=== PATIENT | male | born 1990 | race Caucasian/White ===

== ENCOUNTER 2017-01-29 21:37 | Emergency (ER) | payer MEDICAID, OTHER ==
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
[2017-01-29 23:00] VITALS: BP 117/63
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
== END 2017-01-29 23:00 | disposition home or self-care (01) ==
LOC: MW.ED 21:37
DX: S29.012A Strain of muscle and tendon of back wall of thorax, initial encounter (principal); V89.2XXA Person injured in unspecified motor-vehicle accident, traffic, initial encounter
CPT/HCPCS: 72072; 72072-26; 99282; 99284

== ENCOUNTER 2017-02-24 11:18 | Emergency (ER) | payer OTHER ==
[2017-02-24] MEDS ORDERED: Bacitracin Oint 1 GM U/D Packet TOP ONE (11:29)
[2017-02-24] MEDS ORDERED: Lidocaine 1% 20 ML MDV INJECT ONE (11:29)
[2017-02-24] MEDS ORDERED: Diphtheria,Pertussis(Acell),Tetanus Vaccine 0.5 ML Syringe IM ONE (11:30)
[2017-02-24] MEDS ORDERED: Octyl 2-Cyanoacrylate 1 APPLIC TUBE TOP ONE (11:31)
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
[2017-02-24 11:47] VITALS: BP 133/58
== END 2017-02-24 11:45 | disposition home or self-care (01) ==
LOC: MW.ED 11:18
DX: S01.81XA Laceration without foreign body of other part of head, initial encounter (principal); F17.210 Nicotine dependence, cigarettes, uncomplicated; Z23 Encounter for immunization; W22.8XXA Striking against or struck by other objects, initial encounter
CPT/HCPCS: 12011; 90471; 90715; 99282; A9270

== ENCOUNTER 2022-11-02 08:09 | Emergency (ER) | payer OTHER ==
[2022-11-02] MEDS ORDERED: Sodium Chloride 0.9% 1,000 ML IV ONE (08:35)
[2022-11-02] MEDS ORDERED: Sodium Chloride 0.9% 10 ML Syringe FLUSH PRN (08:35)
[2022-11-02] MEDS ORDERED: Morphine 4 MG/ML Syringe IVPUSH ONE (08:35)
[2022-11-02] MEDS ORDERED: Sodium Chloride 0.9% 2.5 ML Syringe FLUSH PRN (08:35)
[2022-11-02 09:13] LABS: CARBON DIOXIDE,CO2 25.3 mmol/L (21.0-32.0); POTASSIUM,K 4.2 mmol/L (3.5-5.1)
[2022-11-02 12:36] LABS: CORONAVIRUS COVID-19 NAA NEGATIVE (NEGATIVE); INFLUENZA A NAA NEGATIVE (NEGATIVE); INFLUENZA B NAA NEGATIVE (NEGATIVE)
[2022-11-02 12:45] VITALS: BP 128/65; PULSE 84
== END 2022-11-02 12:52 ==
LOC: MW.ED 08:09
DX: S22.32XA Fracture of one rib, left side, initial encounter for closed fracture (principal); S36.039A Unspecified laceration of spleen, initial encounter; S02.609A Fracture of mandible, unspecified, initial encounter for closed fracture; J93.9 Pneumothorax, unspecified; S27.321A Contusion of lung, unilateral, initial encounter; F17.210 Nicotine dependence, cigarettes, uncomplicated; Y04.2XXA Assault by strike against or bumped into by another person, initial encounter
CPT/HCPCS: 0240U; 36415; 70450; 70486; 71260; 72125; 73030; 74177; 80053; 85025; 85610; 96361; 96374; 99285; J2270; J3490; J7030